=== PATIENT | male | born 1980 | race Caucasian/White ===

== ENCOUNTER 2017-06-01 19:04 | Emergency (ER) | payer OTHER ==
[~2017-06-01] VITALS: Ht 182.9 cm; Wt 102.2 kg
[~2017-06-01 19:04] MED LIST: Z.0.NO CURRENT MEDS
[2017-06-01 19:23] VITALS: BP 146/70; PULSE 88; RESP 16; TEMP 98.4; O2SAT 97
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
[2017-06-01 21:34] VITALS: BP 136/78
== END 2017-06-01 21:35 | disposition home or self-care (01) ==
LOC: PHED 19:04
DX: S42.035A Nondisplaced fracture of lateral end of left clavicle, initial encounter for closed fracture (principal); V27.0XXA Motorcycle driver injured in collision with fixed or stationary object in nontraffic accident, initial encounter; F17.210 Nicotine dependence, cigarettes, uncomplicated; F12.90 Cannabis use, unspecified, uncomplicated
CPT/HCPCS: 29240; 73030